=== PATIENT | female | born 1965 | race Caucasian/White ===

== ENCOUNTER 2018-07-24 06:02 | Day surgery (SDC) | payer OTHER ==
[2018-07-24] MEDS ORDERED: FENTAnyl 50 MCG/ML VIAL (08:27)
[2018-07-24] MEDS ORDERED: MIDAZOLAM 1 MG/ML 2 ML INJ ×3 (08:27)
== END 2018-07-24 10:26 | disposition home or self-care (01) ==
LOC: GIL 06:02
DX: Z12.11 Encounter for screening for malignant neoplasm of colon (principal); K64.8 Other hemorrhoids
CPT/HCPCS: 45378; 84703